=== PATIENT | male | born 1995 | race African-American/Black ===

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

== ENCOUNTER 2017-04-06 09:29 | Emergency (ER) | payer BC ==
[~2017-04-06] VITALS: Ht 170.2 cm; Wt 82.6 kg
[~2017-04-06 09:29] MED LIST changes: +DOXY100T PO
[2017-04-06 09:32] VITALS: BP 166/80
--- NOTE | 2017-04-06 09:55 | PHYS DOC ---
Past Medical History Past Medical History: No Pertinent History Past Surgical History: No Surgical History Alcohol Use: Occasionally Drug Use: None Adult General Chief Complaint Chief Complaint: PENIS PROBLEM HPI HPI Patient is a 21 year old male presents to the ED complaining of urinary frequency x 1 week. States he was treated for an STD a few months ago at [facility]. States he has not had sex since then but over the last week he has been experiencing symptoms like he did when he was told he had an STD. Denies abdominal pain, n/v, diarrhea, penile discharge, testicular swelling, headache, fever, weakness, chest pain or shortness of breath. Review of Systems Review of Systems Constitutional: Denies fever or chills [] Eyes: Denies change in visual acuity, redness, or eye pain [] HENT: Denies nasal congestion or sore throat [] Respiratory: Denies cough or shortness of breath [] Cardiovascular: No additional information not addressed in HPI [] GI: Denies abdominal pain, nausea, vomiting, bloody stools or diarrhea [] : Complains of urinary frequency. Denies dysuria or hematuria [] Musculoskeletal: Denies back pain or joint pain [] Integument: Denies rash or skin lesions [] Neurologic: Denies headache, focal weakness or sensory changes [] Endocrine: Denies polyuria or polydipsia [] All other systems were reviewed and found to be within normal limits, except as documented in this note. Current Medications Current Medications Current Medications Medications (Trade) Dose Ordered Sig/Areli Start Time Stop Time Status Last Admin Dose Admin Azithromycin (Zithromax) 1,000 mg 1X ONCE 04/06/17 10:00 04/06/17 10:01 DC 04/06/17 10:02 1,000 MG Ceftriaxone Sodium (Rocephin Im) 250 mg 1X ONCE 04/06/17 10:00 04/06/17 10:01 DC 04/06/17 10:02 250 MG Allergies Allergies Allergies Coded Allergies Type Severity Reaction Last Updated Verified No Known Drug Allergies 05/28/16 No Physical Exam Physical Exam Constitutional: Well developed, well nourished, no acute distress, non-toxic appearance. [] HENT: Normocephalic, atraumatic. Abdomen: Bowel sounds normal, soft, no tenderness, no masses, no pulsatile masses. [] Deferred Exam. Skin: Warm, dry, no erythema, no rash. [] Back: No tenderness, no CVA tenderness. [] Neurologic: Alert and oriented X 3, normal motor function, normal sensory function, no focal deficits noted. [] Psychologic: Affect normal, judgement normal, mood normal. [] Current Patient Data Vital Signs Vital Signs Date Time Temp Pulse Resp B/P (MAP) Pulse Ox O2 Delivery O2 Flow Rate FiO2 04/06/17 09:32 98.4 80 16 99 Room Air 98.4 Lab Values Laboratory Tests Test 04/06/17 09:40 Urine Collection Type Unknown Urine Color Yellow Urine Clarity Cloudy Urine pH 7.0 Urine Specific [place] 1.015 Urine Protein Negative mg/dL (NEG-TRACE) Urine Glucose (UA) Negative mg/dL (NEG) Urine Ketones (Stick) Negative mg/dL (NEG) Urine Blood Negative (NEG) Urine Nitrite Negative (NEG) Urine Bilirubin Negative (NEG) Urine Urobilinogen Dipstick 0.2 mg/dL (0.2 mg/dL) Urine Leukocyte Esterase Negative (NEG) Urine RBC 0 /HPF (0-2) Urine WBC 0 /HPF (0-4) Urine Squamous Epithelial Cells Occ /LPF Urine Bacteria 0 /HPF (0-FEW) EKG EKG [] Radiology/Procedures Radiology/Procedures [] Course & Med Decision Making Course & Med Decision Making Pertinent Labs and Imaging studies reviewed. (See chart for details) []Discussed labs findings with patient. Discussed safe sex practice. Discussed follow-up STD testing at [facility]. Patient given community resources handout. Will discharge with doxycycline. Discussed follow-up and reasons to return to the ED. Patient understands and agrees with plan. Dragon Disclaimer Dragon Disclaimer This electronic medical record was generated, in whole or in part, using a voice recognition dictation system. Departure Departure Impression: Primary Impression: Concern about STD in male without diagnosis Disposition: 01 HOME, SELF-CARE Condition: STABLE Referrals: LO RIOS MD (PCP) Patient Instructions: Sexually Transmitted Disease Scripts Doxycycline Hyclate (DOXYCYCLINE HYCLATE) 100 Mg Tablet. 1 TAB PO BID, #14 TAB Prov: IAN NAYAK 04/06/17 IAN NAYAK Apr 06, 2017 09:55
[2017-04-06] MEDS ORDERED: AZITHROMYCIN 250 MG TABLET. PO ONE (10:00)
[2017-04-06] MEDS ORDERED: cefTRIAXone IM 250 MG VIAL IM ONE (10:00)
[2017-04-06 10:02] LABS: BILIRUBIN,URINE NEGATIVE (NEG); GLUCOSE,URINE NEGATIVE (NEG); NITRITE,URINE NEGATIVE (NEG); PROTEIN,URINE NEGATIVE (NEG-TRACE); UROBILINOGEN,URINE 0.2 mg/dL (0.2 mg/dL)
[2017-04-06 10:07] LABS: BACTERIA,URINE 0 /HPF (0-FEW); RBC,URINE 0 /HPF (0-2); SQUAMOUS EPITHELIAL CELL,UR OCC /LPF; WBC,URINE 0 /HPF (0-4)
[2017-04-06] MEDS ORDERED: DOXY100T9 PO (10:54)
== END 2017-04-06 11:00 | disposition home or self-care (01) ==
LOC: ER 09:29
DX: Z20.2 Contact with and (suspected) exposure to infections with a predominantly sexual mode of transmission (principal)
CPT/HCPCS: 81001; 87491; 87591; 96372; 99284; J0696; Q0144

== ENCOUNTER 2019-03-30 19:52 | Emergency (ER) | payer SELFPAY ==
[~2019-03-30] VITALS: Ht 170.2 cm; Wt 79.4 kg
[~2019-03-30 19:52] MED LIST changes: +DOXY-96 PO
[2019-03-30 20:38] VITALS: BP 178/85
[2019-03-30] MEDS ORDERED: DIPHTH,PERTUSS(ACELL),TET TOX 0.5 ML DISP.SYRIN. VAX IM ONE (21:15)
[2019-03-30] MEDS ORDERED: NEOMY/BACITR/POLYMYXIN OINT PACKET. TP ONE (21:15)
[2019-03-30] MEDS ORDERED: LIDOCAINE 1%/EPI 1:100,000 20 ML VIAL. SQ ONE (21:15)
--- NOTE | 2019-03-30 21:46 | PHYS DOC ---
Past Medical History Past Medical History: No Pertinent History (SOPHY DUARTE APRN) Past Surgical History: No Surgical History (SOPHY DUARTE APRN) Alcohol Use: Occasionally Drug Use: None (SOPHY DUARTE APRN) Adult General Chief Complaint Chief Complaint: LACERATION/AVULSION HPI HPI Patient is a 23 year old AA male, accompanied by his significant other, who presents to the emergency department with complaints of a laceration just above his right knee. Patient states he was seated at a glass table that was cracked when it broke and a piece of broken glass cut his leg open this evening. Patient denies any numbness, tingling, weakness or decreased range of motion of the affected leg. He denies any pain at this time. Patient is unsure when his last tetanus shot was. All other ROS is neg unless otherwise noted in HPI. (SOPHY DUARTE APRN) Review of Systems Review of Systems See Above (SOPHY DUARTE APRN) Current Medications Current Medications Current Medications Medications (Trade) Dose Ordered Sig/Areli Start Time Stop Time Status Last Admin Dose Admin Diphtheria/ Tetanus/Acell Pertussis (Boostrix) 0.5 ml ONCE ONCE 03/30/19 21:15 03/30/19 21:16 DC 03/30/19 21:13 0.5 ML Lidocaine/ Epinephrine (LIDOCAINE 1%-EPI 1:100,000 Multi-Dose) 20 ml 1X ONCE 03/30/19 21:15 03/30/19 21:16 DC 03/30/19 21:12 20 ML Neomycin/ Polymyxin/ Bacitracin (Triple Antibiotic Ointment) 1 pkt 1X ONCE 03/30/19 21:15 03/30/19 21:16 DC 03/30/19 21:12 1 PKT (MEL MUNIZ DO) Allergies Allergies Allergies Coded Allergies Type Severity Reaction Last Updated Verified No Known Drug Allergies 05/28/16 No (MEL MUNIZ DO) Physical Exam Physical Exam See Above Constitutional: Well developed, well nourished, no acute distress, non-toxic appearance. [] HENT: Normocephalic, atraumatic, bilateral external ears normal, nose normal. [] Eyes: PERRLA, EOMI, conjunctiva normal, no discharge. [] Neck: Normal range of motion, no stridor. [] Cardiovascular:Heart rate regular rhythm Lungs & Thorax: Respirations even and unlabored, no retractions, no respiratory distress Skin: Warm, dry, no erythema, no rash; 3 cm laceration just proximal to right knee, no active bleeding. [] Extremities: No tenderness, no cyanosis, no clubbing, ROM intact, no edema. [] Neurologic: Alert and oriented X 3, normal motor function, normal sensory function, no focal deficits noted. [] Psychologic: Affect normal, judgement normal, mood normal. [] (SOPHY DUARTE APRN) Current Patient Data Vital Signs Vital Signs Date Time Temp Pulse Resp B/P (MAP) Pulse Ox O2 Delivery O2 Flow Rate FiO2 03/30/19 20:38 97.8 65 16 178/85 (116) 100 Room Air 97.8 (MUNIZMEL DO) EKG EKG [] (SOPHY DUARTE APRN) Radiology/Procedures Radiology/Procedures Laceration Repair by me: Anesthesia: 1% lidocaine locally with epi Location: R knee Tendon/Joint/Nerves: No injury Foreign body: None detected after copious irrigation and exploration Technique: 5 kai Complexity: No subcutaneous sutures/mucosal repair/edge excision Post Closure Length: 3 cm Patient's bleeding was easily controlled in the department and there is no indication of anemia. No evidence of compartment syndrome, neurologic injury, vascular injury, open joint, tendon laceration, or foreign body. Patient is appropriate for outpatient follow up. Scar minimization instructions given.[] (SOPHY DUARTE APRN) Course & Med Decision Making Course & Med Decision Making Pertinent Labs and Imaging studies reviewed. (See chart for details) [] (SOPHY DUARTE APRN) Dragon Disclaimer Dragon Disclaimer This electronic medical record was generated, in whole or in part, using a voice recognition dictation system. (SOPHY DUARTE APRN) Departure Departure Impression: Primary Impression: Laceration of right knee without complication Additional Impression: Need for Tdap vaccination Disposition: HOME, SELF-CARE Condition: STABLE Referrals: NO PCP (PCP) Patient Instructions: Laceration Care, Adult, [id number] Additional Instructions: Keep the area clean and dry. You may take Tylenol or ibuprofen as needed for pain. Limit activity and lower body weight lifting until kai are removed. Keep the dressing that was placed today on for 24 hours then change the dressing twice a day and apply antibiotic ointment to the area. Follow-up with your primary care doctor, or return to the emergency room in 14 days to have the sutures removed, sooner if you develop signs of infection including: redness, warmth, drainage, or a fever. Attending Signature Attending Signature I have reviewed the PA/MASONRY SUPERVISOR's note and plan of care. I was available for consulta tion as needed during the patient's visit in the emergency department. I agree with the clinical impression, plan, and disposition. (MEL MUNIZ DO) Problem Qualifiers Primary Impression: Laceration of right knee without complication Encounter type: initial encounter Qualified Codes: S81.011A - Laceration without foreign body, right knee, initial encounter SOPHY DUARTE APRN Mar 30, 2019 21:46 MEL MUNIZ DO Mar 31, 2019 01:37
== END 2019-03-30 22:00 | disposition home or self-care (01) ==
LOC: ER 19:52
DX: S81.011A Laceration without foreign body, right knee, initial encounter (principal); W25.XXXA Contact with sharp glass, initial encounter; Y93.89 Activity, other specified; Y92.89 Other specified places as the place of occurrence of the external cause; Y99.8 Other external cause status
CPT/HCPCS: 12002; 90471; 90715; 99283; J3490